=== PATIENT | female | born 1950 | race African-American/Black ===

== ENCOUNTER 2020-01-29 17:03 | Observation (INO) ==
[2020-01-29] MEDS ORDERED: ASPIRIN 325 MG TABLET PO STA (17:30)
[2020-01-29] MEDS ORDERED: ENOXAPARIN 100 MG/ML SYRINGE SUBCUT STA (17:30)
[2020-01-29 18:20] LABS: Basophils % 0.1 % (0.0-0.8); Eosinophils % 0.3 % (0.00-10.9); Hematocrit 38.5 VOL% (35.7-47.0); Hemoglobin 12.7 GM/DL (12.0-16.0); Immature Granulocytes % 0.1 %; Immature Granulocytes Absolute 0.01 #; Lymphocytes # 2.3 10*3/uL (1.4-4.0); Lymphocytes % 32.5 % (21.3-54.2); Mean Corpuscular Volume 90.8 FL (87-102); Monocytes % 6.6 % (1.7-12.7); Neutrophils % 60.4 % (38.7-73.9); Platelet Count 165 T/CUMM (130-400); Red Blood Count 4.24 MC/CUMM (3.8-5.5); Red Cell Distribution Width 14.5 % (9.3-17.3)
[2020-01-29 18:21] LABS: Albumin 4.1 G/DL (3.4-5.0); Bilirubin,Total 0.9 MG/DL (0.2-1.0); Calcium 9.2 MG/DL (8.5-10.1); Osmolality,Calculated 277.3 MOS/KG (273-304); Total Protein 7.8 G/DL (6.4-8.3)
[2020-01-29] MEDS ORDERED: POTASSIUM CHLORIDE 20 MEQ TABLET PO STA (18:43)
[2020-01-29] MEDS ORDERED: GLUCAGON 1 MG VIAL IM PRN (19:59)
[2020-01-29] MEDS ORDERED: ACETAMINOPHEN 325 MG TABLET PO PRN (19:59)
[2020-01-29] MEDS ORDERED: ONDANSETRON 4 MG/2 ML VIAL IV PRN (19:59)
[2020-01-29] MEDS ORDERED: DEXTROSE 50% 25 GM/50 ML VIAL IV PRN (19:59)
[2020-01-29] MEDS: LACTATED RINGERS 1,000 ML IV SCH (22:40)
[2020-01-29] MEDS ORDERED: INFLUENZA VIRUS VACCINE 0.5 ML SYRINGE IM ONE (23:57)
[2020-01-30] MEDS: ALBUTEROL/IPRATROPIUM 3 ML NEB RESP TX SCH ×4 (01:30→20:05)
[2020-01-30 06:21] LABS: Basophils % 0.2 % (0.0-0.8); Eosinophils % 0.5 % (0.00-10.9); Hematocrit 33.7 VOL% (35.7-47.0); Hemoglobin 11.3 GM/DL (12.0-16.0); Immature Granulocytes % 0.2 %; Immature Granulocytes Absolute 0.01 #; Lymphocytes # 2.4 10*3/uL (1.4-4.0); Lymphocytes % 37.9 % (21.3-54.2); Mean Corpuscular HGB Conc 33.5 GM/DL (32-36); Mean Corpuscular Volume 91.6 FL (87-102); Mean Platelet Volume 9.2 FL (9.6-12.0); Monocytes % 7.3 % (1.7-12.7); Neutrophils % 53.9 % (38.7-73.9); Platelet Count 153 T/CUMM (130-400); Red Blood Count 3.68 MC/CUMM (3.8-5.5); Red Cell Distribution Width 14.6 % (9.3-17.3); White Blood Count 6.3 T/CUMM (4-12)
[2020-01-30 06:44] LABS: Calcium 8.7 MG/DL (8.5-10.1); Osmolality,Calculated 277.4 MOS/KG (273-304)
[2020-01-30] MEDS: LACTATED RINGERS 1,000 ML IV SCH ×4 (09:00→18:07)
[2020-01-30] MEDS: ASPIRIN EC 325 MG TABLET PO SCH (09:10)
[2020-01-30] MEDS ORDERED: MECLIZINE 12.5 MG TABLET PO PRN (12:34)
[2020-01-30] MEDS ORDERED: DICLOFENAC 1% GEL 100 GM TUBE TOP PRN (12:34)
[2020-01-30] MEDS ORDERED: ESTRADIOL 0.01% VAG CREAM 42.5 GM TUBE VAG PRN (12:34)
[2020-01-30] MEDS ORDERED: METHOCARBAMOL 500 MG TABLET PO PRN (12:34)
[2020-01-30] MEDS ORDERED: HYDROCORTISONE 2.5% CREAM 30 GM TUBE TOP PRN (12:34)
[2020-01-30] MEDS ORDERED: LACTULOSE 20 GM/30 ML UDCUP PO PRN (12:41)
[2020-01-30] MEDS: lisinopriL 10 MG TABLET PO SCH (15:14)
[2020-01-30] MEDS: ASCORBIC ACID 500 MG TABLET PO SCH (15:14)
[2020-01-30] MEDS: PANTOPRAZOLE 40 MG TABLET PO SCH (15:14)
[2020-01-30] MEDS: LACTULOSE 20 GM/30 ML UDCUP PO SCH ×2 (15:15→20:27)
[2020-01-30] MEDS: OXYBUTYNIN XL 5 MG TABLET PO SCH (15:15)
[2020-01-30] MEDS ORDERED: ENOXAPARIN 40 MG/0.4 ML SYRINGE SUBCUT SCH (18:30)
[2020-01-30] MEDS ORDERED: SIMETHICONE CHEW 80 MG TABLET PO PRN (19:38)
[2020-01-30] MEDS ORDERED: SIMVASTATIN 10 MG TABLET PO SCH (21:00)
[2020-01-30] MEDS ORDERED: LATANOPROST 0.005% OPH SOLN 2.5 ML BOTTLE BOTH EYES SCH (21:00)
[2020-01-31] MEDS: ALBUTEROL/IPRATROPIUM 3 ML NEB RESP TX SCH ×2 (01:42→07:43)
[2020-01-31 05:21] LABS: Bacteria,Urine Occasional /HPF (Few); Bilirubin,Urine Negative (Negative); Blood, Urine Negative (Negative); Glucose,Urine (UA) Negative (Negative); Ketones,Urine Negative (Negative); Mucus,Urine Occasional /LPF (Occasional); Nitrite,Urine Negative (Negative); Protein,Urine Negative; RBC,Urine 2 /HPF (0-4); Urine Appearance CLEAR (Clear); Urine Color Colorless (Yellow); Urine Specific Gravity 1.005 (1.001-1.035); Urine Urobilinogen < 2.0 EU/DL (0.2-1.0)
[2020-01-31] MEDS: PANTOPRAZOLE 40 MG TABLET PO SCH (06:15)
[2020-01-31 06:18] LABS: Basophils % 0.2 % (0.0-0.8); Eosinophils # 0.1 10*3/uL (0.0-0.87); Eosinophils % 0.9 % (0.00-10.9); Hematocrit 35.4 VOL% (35.7-47.0); Hemoglobin 11.4 GM/DL (12.0-16.0); Immature Granulocytes % 0.2 %; Immature Granulocytes Absolute 0.01 #; Lymphocytes # 2.7 10*3/uL (1.4-4.0); Lymphocytes % 42.1 % (21.3-54.2); Mean Corpuscular HGB Conc 32.2 GM/DL (32-36); Mean Corpuscular Volume 92.7 FL (87-102); Mean Platelet Volume 8.8 FL (9.6-12.0); Monocytes % 7.9 % (1.7-12.7); Neutrophils % 48.7 % (38.7-73.9); Platelet Count 159 T/CUMM (130-400); Red Blood Count 3.82 MC/CUMM (3.8-5.5); Red Cell Distribution Width 14.6 % (9.3-17.3); White Blood Count 6.3 T/CUMM (4-12)
[2020-01-31] MEDS ORDERED: LINACLOTIDE 145 MCG CAPSULE PO SCH ×2 (06:30→09:00)
[2020-01-31 06:38] LABS: Calcium 8.7 MG/DL (8.5-10.1)
[2020-01-31 06:42] LABS: Risk Ratio 1.45; Troponin I < 0.015 NG/ML (0.00-0.045); VLDL CHOLESTEROL 6.8 MG/DL
[2020-01-31] MEDS: ASCORBIC ACID 500 MG TABLET PO SCH (08:44)
[2020-01-31] MEDS: lisinopriL 10 MG TABLET PO SCH (08:44)
[2020-01-31] MEDS: OXYBUTYNIN XL 5 MG TABLET PO SCH (08:45)
[2020-01-31] MEDS: ASPIRIN EC 325 MG TABLET PO SCH (08:45)
[2020-01-31] MEDS: LACTULOSE 20 GM/30 ML UDCUP PO SCH (08:46)
[2020-01-31] MEDS ORDERED: ASPIRIN 325 MG TABLET PO SCH (09:00)
[2020-01-31] MEDS ORDERED: FLUTICASONE 50 MCG NASAL SPRAY 16 GM BOTTLE BOTH NARES SCH (09:00)
[2020-01-31 12:01] VITALS: BP 121/70
[2020-02-06] MEDS ORDERED: ERGOCALCIFEROL 50,000 UNIT CAPSULE PO SCH (09:00)
== END 2020-01-31 13:44 | disposition home or self-care (01) ==
LOC: EDUNIT# → EDBD → N.EDINP 17:03 → N.ED 17:03 → N.5E 22:28
PROVIDERS: ADMIT Hospitalist; ATTEND Hospitalist